=== PATIENT | female | born 1945 | race Hispanic/Latino ===

== ENCOUNTER 2016-11-23 16:10 | Emergency (ER) | payer MEDICARE ==
[~2016-11-23] VITALS: Ht 160 cm; Wt 84.1 kg
[2016-11-23 16:43] VITALS: BP 149/77; PULSE 71; RESP 16; O2SAT 99
--- NOTE | 2016-11-23 18:32 | ED.REPORT ---
HPI-General Illness Date of Service Nov 23, 2016 ED Provider: Mirna Foss Nursing Notes Stated Complaint: RIGHT SIDE OF BODY PAIN Chief Complaint: General Complaint Allergies: Coded Allergies: Penicillins (Verified Allergy, Mild, hives, 11/23/16) General Time Seen by MD: 18:22 Physical Exam Vital Signs Vital Signs Date Time Temp Pulse Resp B/P Pulse Ox O2 Delivery O2 Flow Rate FiO2 11/23/16 16:43 36.3 71 16 149/77 99 Room Air Discharge & Departure Referrals: Dawna Linares PA-C (PCP) Mirna Foss Nov 23, 2016 18:32 Mirna Foss Nov 23, 2016 18:32
== END 2016-11-23 18:32 | disposition left against medical advice (07) ==
LOC: SED 16:10
DX: M25.511 Pain in right shoulder (principal); Z53.21 Procedure and treatment not carried out due to patient leaving prior to being seen by health care provider